=== PATIENT | female | born 1945 | race Caucasian/White ===

== ENCOUNTER 2017-01-27 12:14 | Emergency (ER) | payer MEDICARE, OTHER ==
[2017-01-27 12:34] VITALS: BP 158/82
--- NOTE | 2017-01-27 14:56 | EDM.PDOC ---
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 States headache, nausea and vomitting and some dizziness for 3 days. States some constipation and little appetite. Have tried alkaselzer for nausea. States has tried ensure in past and doesn't like the taste. Onset Date: 01/24/17 Duration: Intermittent Location: Reports: Abdomen Worsens with: Reports: Eating Associated Symptoms: Reports: Nausea/Vomiting. Denies: Loss of Appetite - Related Data Allergies Allergy/AdvReac Type Severity Reaction Status Date / Time Sulfa (Sulfonamide Allergy Severe Anaphylactic Verified 01/27/17 12:26 Antibiotics) Shock iodine Allergy Swelling Verified 01/27/17 12:26 Home Meds: Home Meds DULoxetine [Cymbalta] 60 mg PO DAILY 11/01/13 [History] Aspirin/Dipyridamole [Aggrenox 200-25 MG] 25 - 200 mg PO BID 04/12/16 [History] Oxybutynin [Oxybutynin ER] 10 mg PO QPM 04/12/16 [History] atorvaSTATin [Lipitor] 40 mg PO BEDTIME 01/27/17 [History] diphenhydrAMINE [Benadryl] 25 mg PO DAILY 01/27/17 [History] Past Medical History Cardiovascular History: Reports: Hypertension Respiratory History: Reports: Asthma, COPD, SOB Genitourinary History: Reports: Urinary Incontinence 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: Musculoskeletal History: Reports: Neck Pain, Chronic, Other (See Below) Other Musculoskeletal History: Fractured neck 1972 C6 Neurological History: Reports: CVA - Infectious Disease History Infectious Disease History: Reports: Chicken Pox - Past Surgical History HEENT Surgical History: Reports: Cataract Surgery Female Surgical History: Reports: Section, Hysterectomy Social & Family History - Family History Family Medical History: Noncontributory - Tobacco Use Smoking Status *Q: Current Every Day Smoker Years of Tobacco use: 50 Packs/Tins Daily: 1 Used Tobacco, but Quit: No Second Hand Smoke Exposure: No - Caffeine Use Caffeine Use: Reports: Coffee - Alcohol Use Days Per Week of Alcohol Use: 1 Number of Drinks Per Day: 1 Total Drinks Per Week: 1 - Recreational Drug Use Recreational Drug Use: Yes Drug Use in Last 12 Months: Yes Recreational Drug Type: Reports: Marijuana/Hashish Recreational Drug Use Frequency: Monthly Recreational Drug Last Use: pot ED ROS GENERAL - Review of Systems Review Of Systems: See Below Constitutional: Reports: Weakness, Fatigue HEENT: Reports: No Symptoms Respiratory: Reports: Shortness of Breath Cardiovascular: Reports: Dyspnea on Exertion Endocrine: Reports: No Symptoms GI/Abdominal: Reports: Nausea, Vomiting : Reports: Incontinence Musculoskeletal: Reports: No Symptoms Skin: Reports: No Symptoms Neurological: Reports: Dizziness Psychiatric: Reports: No Symptoms ED EXAM, GI/ABD - Physical Exam Exam: See Below Exam Limited By: Other (speech difficult for pt, difficult to find the words) General Appearance: Alert, No Apparent Distress Head: Atraumatic Neck: Supple, Non-Tender Respiratory/Chest: Lungs Clear, Normal Breath Sounds, Decreased Breath Sounds Cardiovascular: Regular Rate, Rhythm, No Edema GI/Abdominal Exam: Normal Bowel Sounds, Soft, Non-Tender Extremities: Non-Tender, No Pedal Edema, Other (Limited movement of right hand) Neurological: Alert Psychiatric: Normal Affect, Normal Mood Skin Exam: Warm, Dry, Intact, Normal Color Course - Vital Signs Last Recorded V/S: Last Vital Signs Temp 98.3 F 01/27/17 12:32 Pulse 79 01/27/17 12:32 Resp 12 01/27/17 12:32 BP 158/82 H 01/27/17 12:32 Pulse Ox 95 01/27/17 12:32 - Orders/Labs/Meds Labs: Laboratory Tests 01/27/17 01/27/17 01/27/17 Range/Units 13:13 13:13 13:14 WBC 8.8 D (4.0-11.0) K/uL RBC 4.08 (3.80-5.80) M/uL Hgb 12.7 (11.5-16.5) g/dL Hct 38.0 (37.0-47.0) % MCV 93 (76-96) fL MCH 31.1 (27.0-32.0) pg MCHC 33.4 (31.0-35.0) g/dL RDW 13.6 (11.0-16.0) % Plt Count 320 (150-500) K/uL MPV 8.8 (6.0-10.0) fL Neut % (Auto) 64.8 (45.0-70.0) % Lymph % (Auto) 23.2 (20.0-40.0) % [place] % (Auto) 8.1 (3.0-10.0) % Eos % (Auto) 3.8 (1.0-5.0) % Baso % (Auto) 0.1 (0.0-0.5) % Neut # (Auto) 5.70 (2.00-7.50) K/uL Lymph # (Auto) 2.04 (1.50-4.00) K/uL [place] # (Auto) 0.71 (0.20-0.80) K/uL Eos # (Auto) 0.33 (0.04-0.40) K/uL Baso # (Auto) 0.01 L (0.02-0.10) K/uL Sodium 138 (136-145) mmol/L Potassium 4.2 (3.5-5.1) mmol/L Chloride 103 (98-107) mmol/L Carbon Dioxide 30.6 (21.0-32.0) mmol/L Anion Gap 8.6 (5.0-15.0) mmol/L BUN 18 D (8-26) mg/dL Creatinine 0.90 (0.55-1.02) mg/dL Est Cr Clr Drug Dosing TNP Estimated GFR (MDRD) > 60 (>60) MLS/MIN BUN/Creatinine Ratio 20.0 (6-25) Glucose 89 (74-100) mg/dL Calcium 9.0 (8.5-10.1) mg/dL Total Bilirubin 0.3 (0.0-1.0) mg/dL AST 28 (15-37) U/L ALT 28 (12-78) U/L Alkaline Phosphatase 162 H (46-116) U/L Total Protein 7.4 (6.4-8.2) g/dL Albumin 3.2 L (3.4-5.0) g/dL Globulin 4.2 (2.2-4.2) g/dL Albumin/Globulin Ratio 0.8 (0.8-2.0) Urine Color Yellow Urine Appearance Slightly cloudy (CLEAR) Urine pH 7.0 (5.0-8.0) Ur Specific [place] 1.020 (1.003-1.030) Urine Protein Trace H (NEGATIVE) mg/dL Urine Glucose (UA) Negative (NEGATIVE) mg/dL Urine Ketones Negative (NEGATIVE) mg/dL Urine Occult Blood Trace-intact H (NEGATIVE) Urine Nitrite Negative (NEGATIVE) Urine Bilirubin Negative (NEGATIVE) Urine Urobilinogen 0.2 (0.2-1.0) E.U./dL Ur Leukocyte Esterase Moderate H (NEGATIVE) Urine RBC 5-10 H /HPF Urine WBC 50-75 H /HPF Urine WBC Clumps Few /HPF Ur Squamous Epith Cells Few /HPF Urine Bacteria Moderate H /HPF - Re-Assessments/Exams Free Text/Narrative Re-Assessment/Exam: 01/27/17 17:40 LE 13:30: Reviewed lab results with pt and . Electrolytes normal and kidney function normal. No leukocytosis noted and no anemia. Will treat UTI with Cipro for 7 days. RX to [facility] pharmacy. Recommend use of supplement and will try ensure plus fruit punch. Recommend use of Meclizine for dizziness and may help with nausea. Recommend MOM every 3 days if no BM to keep regular. Recommend increase fluids and supplements as tolerated. and state comfort with this plan. RTC if symptoms persist or worsen. Departure - Departure Time of Disposition: 13:30 Disposition: Home, Self-Care 01 Condition: Good Clinical Impression: UTI, Urinary tract infectious disease, Nausea & vomiting, Constipation - Discharge Information Instructions: Nausea, Adult, Urinary Tract Infection, Adult, [id number] Referrals: PCP,None [Primary Care Provider] - Forms: ED Department Discharge Additional Instructions: Take meclazine before lunch and before supper to prevent nausea. Follow up with primary care provider if nausea/vomiting persists.
== END 2017-01-27 14:05 | disposition home or self-care (01) ==
LOC: LB.ED 12:14
DX: N39.0 Urinary tract infection, site not specified (principal); R11.2 Nausea with vomiting, unspecified; K59.00 Constipation, unspecified; F17.210 Nicotine dependence, cigarettes, uncomplicated; Z88.2 Allergy status to sulfonamides; Z88.8 Allergy status to other drugs, medicaments and biological substances
CPT/HCPCS: 36415; 80053; 81001; 85025; 99283; 99284

== ENCOUNTER 2019-09-11 11:42 | Inpatient (IN) | payer MEDICARE ==
[2019-09-11] MEDS ORDERED: Sodium Chloride 0.9% 10 ML Syringe FLUSH PRN (12:04)
[2019-09-11] MEDS ORDERED: LORazepam 2 MG/ML SDV IVPUSH ONE (13:03)
[2019-09-11] MEDS: LORazepam 0.5 MG Tab ONE ×2 (13:11→19:13)
--- NOTE | 2019-09-11 13:21 | EDM.PDOC ---
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 She has a history of a stoke with right sided weakness and has had an increase in right arm swelling. She was seen by Dr. Calvo last week for this and is scheduled for an ultrasound for later this week. 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 She was also noted to be quite short of breath today. She has had increased difficulty with her breathing this weekend but it is much worse today. She arrives using her 's oxygen at 2L per NC with oxygen saturation of 88%. She is having difficulty speaking in full sentences and is most comfortable sitting up. Patient denies a fever, chest pain, or other pain. She has had some nausea and vomiting over the weekend as well. She last had urine out just before arrival to the ED. Onset: Gradual Onset Date: 09/06/19 Duration: Constant, Getting Worse Location: Reports: Chest Severity: Moderate Improves with: Reports: Other (some improvement with supplemental oxygen) Worsens with: Reports: Movement Associated Symptoms: Reports: Cough, Loss of Appetite, Nausea/Vomiting, Shortness of Breath, Weakness. Denies: Chest Pain, Diaphoresis, Fever/Chills, Headaches, Syncope Right Lower Arm Pain Score (Numeric/FACES): 4 - Related Data Allergies Allergy/AdvReac Type Severity Reaction Status Date / Time Sulfa (Sulfonamide Allergy Severe Anaphylactic Verified 03/23/18 12:25 Antibiotics) Shock iodine Allergy Swelling Verified 03/23/18 12:25 Home Meds: Home Meds Aspirin/Dipyridamole [Aggrenox 200-25 MG] 25 - 200 mg PO BID 04/12/16 [History] atorvaSTATin [Lipitor] 40 mg PO BEDTIME 01/27/17 [History] diphenhydrAMINE [Benadryl] 25 mg PO DAILY 01/27/17 [History] Clopidogrel [Plavix] 75 mg PO BEDTIME 09/11/19 [History] Past Medical History HEENT History: Reports: Cataract Cardiovascular History: Reports: High Cholesterol, Hypertension Respiratory History: Reports: Asthma, COPD, SOB Gastrointestinal History: Reports: Chronic Constipation Genitourinary History: Reports: Urinary Incontinence 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: Musculoskeletal History: Reports: Neck Pain, Chronic, Other (See Below) Other Musculoskeletal History: Fractured neck 1972 C6 Neurological History: Reports: CVA - Infectious Disease History Infectious Disease History: Reports: Chicken Pox - Past Surgical History HEENT Surgical History: Reports: Cataract Surgery Cardiovascular Surgical History: Reports: None Female Surgical History: Reports: Section, Hysterectomy Social & Family History - Family History Family Medical History: Noncontributory - Tobacco Use Smoking Status *Q: Former Smoker Used Tobacco, but Quit: Yes Month/Year Tobacco Last Used: 06/04/2019 Second Hand Smoke Exposure: No - Caffeine Use Caffeine Use: Reports: Coffee - Recreational Drug Use Recreational Drug Use: No ED ROS GENERAL - Review of Systems Review Of Systems: Comprehensive ROS is negative, except as noted in HPI. ED EXAM, GENERAL - Physical Exam Exam: See Below Exam Limited By: No Limitations General Appearance: Alert, No Apparent Distress Eye Exam: Bilateral Eye: PERRL Ears: Normal External Exam Nose: Normal Inspection, Normal Mucosa, Nasal Flaring Throat/Mouth: Normal Inspection, Normal Oropharynx, No Airway Compromise Head: Atraumatic, Normocephalic Neck: Normal Inspection, Supple, Full Range of Motion Respiratory/Chest: Respiratory Distress, Decreased Breath Sounds (significantly decreased breath sounds left lower; some air entry noted in left upper), Wheezing (occasional expiratory) GI/Abdominal: Normal Bowel Sounds, Soft, Non-Tender, No Distention Neurological: Alert, Oriented Skin Exam: Dry, Intact, Normal Color Course - Vital Signs Last Recorded V/S: Last Vital Signs Temp 36.4 C 09/11/19 12:47 Pulse 113 H 09/11/19 12:47 Resp 18 09/11/19 12:47 BP 147/47 H 09/11/19 12:47 Pulse Ox 88 L 09/11/19 12:47 - Orders/Labs/Meds Orders: Active Orders 24 hr Category Date Time Status Admission Status [Patient Status] [ADT] Routine ADT 09/11/19 12:40 Active EKG Documentation Completion [RC] ASDIRECTED Care 09/11/19 12:05 Active Chest 1V Frontal [CR] Stat Exams 09/11/19 12:05 Ordered Chest wo Cont [CT] Stat Exams 09/11/19 13:03 Ordered CORONAVIRUS COVID-19, CARI Stat Lab 09/11/19 12:06 Ordered URINALYSIS W/MICROSCOPIC [UA W/MICROSCOPIC] [URIN] Stat Lab 09/11/19 12:04 Ordered Sodium Chloride 0.9% [Saline Flush] Med 09/11/19 12:04 Active 10 ml FLUSH ASDIRECTED PRN Saline Lock Insert [OM.PC] Stat Oth 09/11/19 12:04 Ordered Medication Orders Sodium Chloride (Saline Flush) 10 ml FLUSH ASDIRECTED PRN PRN Reason: Keep Vein Open Labs: Laboratory Tests 09/11/19 09/11/19 Range/Units 12:20 12:40 WBC 8.8 (4.0-11.0) K/uL RBC 3.97 (3.80-5.80) M/uL Hgb 11.9 (11.5-16.5) g/dL Hct 36.4 L (37.0-47.0) % MCV 92 (76-96) fL MCH 30.0 (27.0-32.0) pg MCHC 32.7 (31.0-35.0) g/dL RDW 13.8 (11.0-16.0) % Plt Count 263 (150-500) K/uL MPV 9.8 (6.0-10.0) fL Neut % (Auto) 79.8 H (45.0-70.0) % Lymph % (Auto) 13.3 L (20.0-40.0) % [place] % (Auto) 5.8 (3.0-10.0) % Eos % (Auto) 1.0 (1.0-5.0) % Baso % (Auto) 0.1 (0.0-0.5) % Neut # (Auto) 7.03 (2.00-7.50) K/uL Lymph # (Auto) 1.17 L (1.50-4.00) K/uL [place] # (Auto) 0.51 (0.20-0.80) K/uL Eos # (Auto) 0.09 (0.04-0.40) K/uL Baso # (Auto) 0.01 L (0.02-0.10) K/uL Sodium 139 (136-145) mmol/L Potassium 4.1 (3.5-5.1) mmol/L Chloride 103 (98-107) mmol/L Carbon Dioxide 27.5 (21.0-32.0) mmol/L Anion Gap 12.6 (5.0-15.0) mmol/L BUN 36 H D (8-26) mg/dL Creatinine 1.20 H D (0.55-1.02) mg/dL Est Cr Clr Drug Dosing 32.89 mL/min Estimated GFR (MDRD) 44 L (>60) MLS/MIN BUN/Creatinine Ratio 30.0 H (6-25) Glucose 215 H D (74-100) mg/dL Calcium 8.9 (8.5-10.1) mg/dL Troponin I < 0.017 (0.000-0.060) ng/mL Meds: Medications Generic Name Dose Route Start Last Admin Trade Name Freq PRN Reason Stop Dose Admin Sodium Chloride 10 ml 09/11/19 12:04 Saline Flush FLUSH ASDIRECTED PRN Keep Vein Open Discontinued Medications Generic Name Dose Route Start Last Admin Trade Name Freq PRN Reason Stop Dose Admin Lorazepam 0.5 mg 09/11/19 13:03 09/11/19 13:11 Ativan IVPUSH 09/11/19 13:04 0.5 mg ONETIME ONE Administration Lorazepam Confirm 09/11/19 13:10 Ativan Administered 09/11/19 13:11 Dose 0.5 mg .ROUTE .STK-MED ONE - Re-Assessments/Exams Free Text/Narrative Re-Assessment/Exam: 09/11/19 13:23 This patient presents with hypoxia and increased difficulty breathing. For these reasons she will be admitted to the inpatient unit on Observation status for supplemental oxygen. She will get a chest CT today as well as her CXR shows some significant changes since her last exam. Departure - Departure Time of Disposition: 13:00 Disposition: Refer to Observation Condition: Fair Clinical Impression: Hypoxia, Shortness of breath - Discharge Information *PRESCRIPTION DRUG MONITORING PROGRAM REVIEWED*: Not Applicable Referrals: PCP,None [Primary Care Provider] - Sepsis Event Note - Evaluation Sepsis Screening Result: No Definite Risk - Focused Exam Vital Signs: Vital Signs Temp Pulse Resp BP Pulse Ox 09/11/19 12:47 36.4 C 113 H 18 147/47 H 88 L 09/11/19 12:05 36.3 C 113 H 18 147/47 H 88 L Date Exam was Performed: 09/11/19 Time Exam was Performed: 13:16 - My Orders Last 24 Hours: My Active Orders 09/11/19 12:04 URINALYSIS W/MICROSCOPIC [UA W/MICROSCOPIC] [URIN] Stat Sodium Chloride 0.9% [Saline Flush] 10 ml FLUSH ASDIRECTED PRN Saline Lock Insert [OM.PC] Stat 09/11/19 12:05 EKG Documentation Completion [RC] ASDIRECTED Chest 1V Frontal [CR] Stat 09/11/19 12:06 CORONAVIRUS COVID-19, CARI Stat 09/11/19 12:40 Admission Status [Patient Status] [ADT] Routine 09/11/19 13:03 Chest wo Cont [CT] Stat - Assessment/Plan Last 24 Hours: My Active Orders 09/11/19 12:04 URINALYSIS W/MICROSCOPIC [UA W/MICROSCOPIC] [URIN] Stat Sodium Chloride 0.9% [Saline Flush] 10 ml FLUSH ASDIRECTED PRN Saline Lock Insert [OM.PC] Stat 09/11/19 12:05 EKG Documentation Completion [RC] ASDIRECTED Chest 1V Frontal [CR] Stat 09/11/19 12:06 CORONAVIRUS COVID-19, CARI Stat 09/11/19 12:40 Admission Status [Patient Status] [ADT] Routine 09/11/19 13:03 Chest wo Cont [CT] Stat
--- NOTE | 2019-09-11 16:29 | CT ---
DATE OF SERVICE: 09/11/2019 CLINICAL DATA: Shortness of breath Unenhanced chest CT: Multislice acquisition through the chest without IV contrast was performed. No priors. There is a large right pleural effusion. It is partially loculated anteriorly. There is a large soft tissue density mass involving the right hilum and suprahilar region. It measures greater than 12 cm in its maximum dimension. It encases the right mainstem bronchus, right upper lobe bronchus, and right bronchus intermedius with moderate compression. It extends into the mediastinum and partially encases the distal trachea and jagruti with extension into the superior mediastinum, AP window, and subcarinal middle mediastinum. Lymphoma or other malignant processes are suspected. There is marked compressive atelectasis of the right lower lobe and right upper lobe. There is mild shift of the mediastinal contents to the left. The heart size is normal. There are severe coronary artery calcifications. There are calcifications in the region of the aortic and mitral valves. No significant pericardial effusion. There is degenerative disc disease throughout the lower thoracic and lumbar spine. No lytic or blastic bone lesions. Impression: Abnormal exam. See above. MTDD
--- NOTE | 2019-09-11 16:44 | PCM.HP.2 ---
H&P History of Present Illness - General Date of Service: 09/11/19 Admit Problem/Dx: Admission Diagnosis/Problem Admission Diagnosis/Problem Shortness of breath Source of Information: Patient, RN Notes Reviewed, Other (Home Care Nurse) History Limitations: Reports: No Limitations - History of Present Illness Initial Comments - Free Text/Narative: This patient presents to the ED for difficulty breathing and arm swelling. She has a history of a stoke with right sided weakness and has had an increase in right arm swelling. She was seen by Dr. Calvo last week for this and is scheduled for an ultrasound for later this week. The home service demonstrator states the swelling is much worse this morning. She was also noted to be quite short of breath today. She has had increased difficulty with her breathing this weekend but it is much worse today. She arrives using her 's oxygen at 2L per NC with oxygen saturation of 88%. She is having difficulty speaking in full sentences and is most comfortable sitting up. Patient denies a fever, chest pain, or other pain. She has had some nausea and vomiting over the weekend as well. She last had urine out just before arrival to the ED. Onset of Symptoms: Reports: Gradual Symptom Onset Date: 09/07/19 Duration of Symptoms: Reports: Constant, Getting Worse Right Lower Arm Pain Score (Numeric/FACES): 4 - Related Data Allergies/Adverse Reactions: Allergies Allergy/AdvReac Type Severity Reaction Status Date / Time Sulfa (Sulfonamide Allergy Severe Anaphylactic Verified 03/23/18 12:25 Antibiotics) Shock iodine Allergy Swelling Verified 03/23/18 12:25 Home Medications: Home Meds Aspirin/Dipyridamole [Aggrenox 200-25 MG] 25 - 200 mg PO BID 04/12/16 [History] atorvaSTATin [Lipitor] 40 mg PO BEDTIME 01/27/17 [History] diphenhydrAMINE [Benadryl] 25 mg PO DAILY 01/27/17 [History] Clopidogrel [Plavix] 75 mg PO BEDTIME 09/11/19 [History] Past Medical History HEENT History: Reports: Cataract Cardiovascular History: Reports: High Cholesterol, Hypertension Respiratory History: Reports: Asthma, COPD, SOB Gastrointestinal History: Reports: Chronic Constipation Genitourinary History: Reports: Urinary Incontinence 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: Musculoskeletal History: Reports: Neck Pain, Chronic, Other (See Below) Other Musculoskeletal History: Fractured neck 1972 C6 Neurological History: Reports: CVA - Infectious Disease History Infectious Disease History: Reports: Chicken Pox - Past Surgical History HEENT Surgical History: Reports: Cataract Surgery Cardiovascular Surgical History: Reports: None Female Surgical History: Reports: Section, Hysterectomy Social & Family History - Family History Family Medical History: Noncontributory - Tobacco Use Smoking Status *Q: Former Smoker Used Tobacco, but Quit: Yes Month/Year Tobacco Last Used: 06/04/2019 Second Hand Smoke Exposure: No - Caffeine Use Caffeine Use: Reports: Coffee - Recreational Drug Use Recreational Drug Use: No H&P Review of Systems - Review of Systems: Review Of Systems: See Below General: Reports: Weakness, Fatigue, Decreased Appetite. Denies: Fever HEENT: Reports: No Symptoms Pulmonary: Reports: Shortness of Breath, Cough Cardiovascular: Reports: Dyspnea on Exertion, Orthopnea. Denies: Chest Pain, Palpitations Gastrointestinal: Denies: Abdominal Pain, Constipation, Difficulty Swallowing, Nausea, Vomiting Genitourinary: Reports: No Symptoms Musculoskeletal: Reports: Other (right are swelling) Skin: Reports: No Symptoms Neurological: Reports: No Symptoms Exam - Exam Exam: See Below - Vital Signs Vital Signs: Last Vital Signs Temp 35.7 C L 09/11/19 13:25 Pulse 92 09/11/19 13:25 Resp 16 09/11/19 13:25 BP 126/63 09/11/19 13:25 Pulse Ox 99 09/11/19 13:25 Weight: 49.895 kg - Exam Quality Assessment: Supplemental Oxygen General: Alert, Oriented, Cooperative, Moderate Distress HEENT: PERRLA, Conjunctiva Clear, EOMI, Mucosa Moist & [place], Posterior Pharynx Clear Neck: Supple Lungs: Decreased Breath Sounds (significantly decreased on right; good air entry on left). No: Crackles, Rales, Rhonchi, Wheezing Cardiovascular: Regular Rate, Regular Rhythm GI/Abdominal Exam: Normal Bowel Sounds, Soft, Non-Tender, No Distention Extremities: Normal Capillary Refill (except right hand, delayed to 3 seconds), Other (right arm and hand moderate swelling, non-pitting; no deformity or discoloration, distal capillary refill delayed) Skin: Warm, Dry, Intact Neuro Extensive - Mental Status: Alert, Oriented x3 Psychiatric: Alert - Patient Data Lab Results Last 24 hrs: Laboratory Results - last 24 hr 09/11/19 09/11/19 09/11/19 Range/Units 12:06 12:20 12:40 WBC 8.8 (4.0-11.0) K/uL RBC 3.97 (3.80-5.80) M/uL Hgb 11.9 (11.5-16.5) g/dL Hct 36.4 L (37.0-47.0) % MCV 92 (76-96) fL MCH 30.0 (27.0-32.0) pg MCHC 32.7 (31.0-35.0) g/dL RDW 13.8 (11.0-16.0) % Plt Count 263 (150-500) K/uL MPV 9.8 (6.0-10.0) fL Neut % (Auto) 79.8 H (45.0-70.0) % Lymph % (Auto) 13.3 L (20.0-40.0) % [place] % (Auto) 5.8 (3.0-10.0) % Eos % (Auto) 1.0 (1.0-5.0) % Baso % (Auto) 0.1 (0.0-0.5) % Neut # (Auto) 7.03 (2.00-7.50) K/uL Lymph # (Auto) 1.17 L (1.50-4.00) K/uL [place] # (Auto) 0.51 (0.20-0.80) K/uL Eos # (Auto) 0.09 (0.04-0.40) K/uL Baso # (Auto) 0.01 L (0.02-0.10) K/uL Sodium 139 (136-145) mmol/L Potassium 4.1 (3.5-5.1) mmol/L Chloride 103 (98-107) mmol/L Carbon Dioxide 27.5 (21.0-32.0) mmol/L Anion Gap 12.6 (5.0-15.0) mmol/L BUN 36 H D (8-26) mg/dL Creatinine 1.20 H D (0.55-1.02) mg/dL Est Cr Clr Drug Dosing 32.89 mL/min Estimated GFR (MDRD) 44 L (>60) MLS/MIN BUN/Creatinine Ratio 30.0 H (6-25) Glucose 215 H D (74-100) mg/dL Calcium 8.9 (8.5-10.1) mg/dL Troponin I < 0.017 (0.000-0.060) ng/mL SARS Virus RNA (PCR) Negative (NEGATIVE) Result Diagrams: 09/11/19 12:20 09/11/19 12:40 Sepsis Event Note - Evaluation Sepsis Screening Result: No Definite Risk - Focused Exam Vital Signs: Vital Signs Temp Pulse Resp BP Pulse Ox Pulse Ox 09/11/19 13:25 35.7 C L 92 16 126/63 99 99 09/11/19 12:47 36.4 C 113 H 18 147/47 H 88 L 09/11/19 12:05 36.3 C 113 H 18 147/47 H 88 L Date Exam was Performed: 09/11/19 Time Exam was Performed: 17:58 - Problem List (1) Hypoxia SNOMED Code(s): 656270368 ICD Code: R09.02 - HYPOXEMIA Status: Acute Priority: High Current Visit : Yes (2) Shortness of breath SNOMED Code(s): 380533334 ICD Code: R06.02 - SHORTNESS OF BREATH Status: Acute Priority: High Current Visit: Yes Problem List Initiated/Reviewed/Updated: Yes Orders Last 24hrs: Active Orders 24 hr Category Date Time Status Admission Status [Patient Status] [ADT] Routine ADT 09/11/19 12:40 Active Patient Status [ADT] Routine ADT 09/11/19 13:25 Active EKG Documentation Completion [RC] ASDIRECTED Care 09/11/19 12:05 Active Oxygen Therapy [RC] PRN Care 09/11/19 13:25 Active VTE/DVT Education [RC] Per Unit Routine Care 09/11/19 13:25 Active Vital Signs [RC] Q4H Care 09/11/19 13:25 Active Regular Diet [DIET] Diet 09/11/19 Dinner Ordered Chest 1V Frontal [CR] Stat Exams 09/11/19 12:05 Taken URINALYSIS W/MICROSCOPIC [UA W/MICROSCOPIC] [URIN] Stat Lab 09/11/19 12:04 Ordered Aspirin/Dipyridamole [Aggrenox 200-25 MG] Med 09/11/19 20:00 Active 25 - 200 mg PO BID Clopidogrel [Plavix] Med 09/11/19 20:00 Active 75 mg PO BEDTIME Sodium Chloride 0.9% [Saline Flush] Med 09/11/19 12:04 Active 10 ml FLUSH ASDIRECTED PRN atorvaSTATin [Lipitor] Med 09/11/19 20:00 Active 40 mg PO BEDTIME diphenhydrAMINE [Benadryl] Med 09/12/19 08:00 Active 25 mg PO DAILY Saline Lock Insert [OM.PC] Stat Oth 09/11/19 12:04 Ordered Resuscitation Status Routine Resus Stat 09/11/19 13:25 Ordered Medication Orders Non-Formulary Medication (Aspirin/Dipyridamole [Aggrenox 200-25 Mg]) 25 - 200 mg PO BID ELICIA Non-Formulary Medication (Atorvastatin [Lipitor]) 40 mg PO BEDTIME ELICIA Non-Formulary Medication (Clopidogrel [Plavix]) 75 mg PO BEDTIME ELICIA Non-Formulary Medication (Diphenhydramine [Benadryl]) 25 mg PO DAILY ELICIA Sodium Chloride (Saline Flush) 10 ml FLUSH ASDIRECTED PRN PRN Reason: Keep Vein Open Assessment/Plan Comment:: Assessment 1) Hypoxia 2) Shortness of Breath 3) 12 cm mass right lung Plan 1) Titrate supplemental oxygen to keep saturation around 92% 2) Arrange for supplemental oxygen at home 3) Arrange Oncology Consult on outpatient basis. - Mortality Measure Prognosis:: Poor
[2019-09-11] MEDS: LORazepam 0.5 MG Tab PO PRN (20:42)
[2019-09-11] MEDS ORDERED: Aspirin/Dipyridamole 200-25 MG Cap.ER ONE (21:02)
[2019-09-11] MEDS ORDERED: Clopidogrel 75 MG Tab ONE (21:02)
[2019-09-11] MEDS ORDERED: atorvaSTATin 40 MG Tab ONE (21:03)
[2019-09-11] MEDS: ASPIRIN PO SCH (21:06)
[2019-09-11] MEDS: DIPYRIDAMOLE PO SCH (21:06)
[2019-09-11] MEDS: Non-Formulary Medication 1 Each (Clopidogrel [Plavix] 75 MG) PO SCH (21:07)
[2019-09-11] MEDS: Non-Formulary Medication 1 Each (Atorvastatin [Lipitor] 40 MG) PO SCH (21:07)
[2019-09-12] MEDS ORDERED: DIPHENHYDRAMINE 25 MG PO SCH (08:00)
--- NOTE | 2019-09-12 08:12 | CR ---
DATE OF SERVICE: 09/11/2019 CLINICAL DATA: Shortness of breath AP Chest: Comparison is made to a prior exam dated 17 Aug 2016. The heart size is normal. There is marked pleural thickening in the right hemithorax which may be loculated pleural effusion or true pleural thickening secondary to infectious or inflammatory process or malignancy. There is marked atelectasis of the right lung also. There is also a masslike density overlying the right hilum and there is masslike soft tissue fullness in the right apex. The left lung is clear. Chest CT is recommended to further evaluate this patient. MTDD
[2019-09-12] MEDS ORDERED: Docusate Sodium 100 MG Cap PO PRN (09:37)
[2019-09-12] MEDS: DIPYRIDAMOLE PO SCH (09:39)
[2019-09-12] MEDS: ASPIRIN PO SCH (09:39)
[2019-09-12] MEDS ORDERED: traMADol 50 MG Tab PO PRN (09:47)
--- NOTE | 2019-09-12 16:22 | PCM.PN ---
- General Info Date of Service: 09/12/19 Admission Dx/Problem (Free Text): Admission Diagnosis/Problem Admission Diagnosis/Problem Shortness of breath Subjective Update: Patient continues largely unchanged with significant increase in her work of breathing and respiratory distress with movement. She is complaining of pain today, particularly right chest and shoulder. She is also having some choking episodes with swallowing liquids such as water. She seems to do fine with soft foods or thicker fluids. She denies vomiting or diarrhea. Functional Status: Reports: Pain Controlled - Review of Systems General: Reports: No Symptoms HEENT: Reports: No Symptoms Pulmonary: Reports: Shortness of Breath, Cough Cardiovascular: Reports: Chest Pain, Dyspnea on Exertion, Orthopnea Gastrointestinal: Reports: No Symptoms Genitourinary: Reports: No Symptoms Musculoskeletal: Reports: Shoulder Pain (right) Skin: Reports: No Symptoms Neurological: Denies: Headache, Syncope, Difficulty Walking - Patient Data Vitals - Most Recent: Last Vital Signs Temp 36.2 C 09/12/19 16:00 Pulse 89 09/12/19 16:00 Resp 20 09/12/19 16:00 BP 145/75 H 09/12/19 16:00 Pulse Ox 95 09/12/19 16:00 Weight - Most Recent: 49.895 kg Lab Results Last 24 Hours: Laboratory Results - last 24 hr 09/11/19 09/11/19 Range/Units 12:06 12:06 SARS Virus RNA (PCR) Cancelled SARS-CoV-2 RNA (RT-PCR) Negative Med Orders - Current: Current Medications Aspirin (Aspirin) 81 mg PO DAILY [facility] Docusate Sodium (Colace) 200 mg PO DAILY PRN PRN Reason: Constipation Potassium Chloride/Dextrose/Sod Cl (D5 1/2 Ns W/ 20 Meq/L Kcl) 1,000 mls @ 100 mls/hr IV ASDIRECTED ELICIA Lorazepam (Ativan) 0.5 mg PO Q4H PRN PRN Reason: Anxiety Last Admin: 09/11/19 20:42 Dose: 0.5 mg Non-Formulary Medication (Atorvastatin [Lipitor]) 40 mg PO BEDTIME ELICIA Last Admin: 09/11/19 21:07 Dose: 40 mg Non-Formulary Medication (Clopidogrel [Plavix]) 75 mg PO BEDTIME [facility] Last Admin: 09/11/19 21:07 Dose: 75 mg Sodium Chloride (Saline Flush) 10 ml FLUSH ASDIRECTED PRN PRN Reason: Keep Vein Open Tramadol HCl (Ultram) 100 mg PO Q6H PRN PRN Reason: Pain (moderate 4-6) Discontinued Medications Atorvastatin Calcium (Lipitor) Confirm Administered Dose 40 mg .ROUTE .STK-MED ONE Stop: 09/11/19 21:04 Last Admin: 09/11/19 21:09 Dose: Not Given Clopidogrel Bisulfate (Plavix) Confirm Administered Dose 75 mg .ROUTE .STK-MED ONE Stop: 09/11/19 21:03 Last Admin: 09/11/19 21:08 Dose: Not Given Dipyridamole/Aspirin (Aggrenox 200-25 Mg) Confirm Administered Dose 1 cap .ROUTE .STK-MED ONE Stop: 09/11/19 21:03 Last Admin: 09/11/19 21:08 Dose: Not Given Lorazepam (Ativan) 0.5 mg IVPUSH ONETIME ONE Stop: 09/11/19 13:04 Last Admin: 09/11/19 13:11 Dose: 0.5 mg Lorazepam (Ativan) Confirm Administered Dose 0.5 mg .ROUTE .STK-MED ONE Stop: 09/11/19 13:11 Last Admin: 09/11/19 19:13 Dose: Not Given Non-Formulary Medication (Aspirin/Dipyridamole [Aggrenox 200-25 Mg]) 25 - 200 mg PO BID [facility] Last Admin: 09/12/19 09:39 Dose: Not Given Non-Formulary Medication (Diphenhydramine [Benadryl]) 25 mg PO DAILY [facility] Last Admin: 09/12/19 09:39 Dose: Not Given - Exam Quality Assessment: Supplemental Oxygen General: Alert, Oriented, Mild Distress HEENT: Pupils Equal, Pupils Reactive, EOMI, Mucous Membr. Moist/[place] Neck: Supple Lungs: Decreased Breath Sounds (Right breath sounds absent with exception of faint air entry to upper lobe; left chest clear) Cardiovascular: Regular Rhythm GI/Abdominal Exam: Normal Bowel Sounds, Soft, Non-Tender, No Distention Back Exam: Full Range of Motion Extremities: Normal Capillary Refill Skin: Warm, Dry, Intact Wound/Incisions: Healing Well Neurological: No New Focal Deficit Psy/Mental Status: Alert, Normal Affect Sepsis Event Note - Evaluation Sepsis Screening Result: No Definite Risk - Focused Exam Vital Signs: Vital Signs Temp Pulse Resp BP Pulse Ox 09/12/19 16:00 36.2 C 89 20 145/75 H 95 09/12/19 11:44 36.1 C 86 20 135/71 96 09/12/19 08:00 36.2 C 98 20 102/50 L 91 L Date Exam was Performed: 09/12/19 Time Exam was Performed: 16:17 - Problem List & Annotations (1) Hypoxia SNOMED Code(s): 958534567 Code(s): R09.02 - HYPOXEMIA Status: Acute Priority: High Current Visit : Yes (2) Shortness of breath SNOMED Code(s): 757109907 Code(s): R06.02 - SHORTNESS OF BREATH Status: Acute Priority: High Current Visit: Yes - Problem List Review Problem List Initiated/Reviewed/Updated: Yes - My Orders Last 24 Hours: My Active Orders 09/11/19 18:07 LORazepam [Ativan] 0.5 mg PO Q4H PRN 09/11/19 20:00 Clopidogrel [Plavix] 75 mg PO BEDTIME atorvaSTATin [Lipitor] 40 mg PO BEDTIME 09/11/19 Dinner Regular Diet [DIET] 09/12/19 09:10 CULTURE MRSA SURVEY [RM] Routine 09/12/19 09:35 OT Evaluation and Treatment [CONS] Routine PT Evaluation and Treatment [CONS] Routine 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 [THERAPEUTIC RECREATION LEADER Evaluation and Treatment] [CONS] Routine 09/12/19 09:37 Docusate Sodium [Colace] 200 mg PO DAILY PRN 09/12/19 09:47 traMADol [Ultram] 100 mg PO Q6H PRN 09/12/19 11:31 Admission Diagnosis [ADT] Stat Admission Status [Patient Status] [ADT] Routine 09/12/19 16:15 D5 1/2 NS w/ 20 mEq/L KCl 1,000 ml IV ASDIRECTED 09/13/19 08:00 Aspirin 81 mg PO DAILY - Assessment Assessment:: 09/11/2019 Assessment 1) Pleural Effusion with Hypoxia 2) Shortness of Breath 3) 12 cm mass right lung Plan 1) Titrate supplemental oxygen to keep saturation around 92% 2) Arrange for supplemental oxygen at home 3) Arrange Oncology Consult on outpatient basis. 09/12/2019 Assessment 1) Pleural Effusion with Hypoxia 2) Shortness of Breath 3) 12 cm mass right lung Plan 1) Titrate supplemental oxygen to keep saturation around 92% 2) Change to Inpatient status 3) OT/PT/Swallow Study required 4) Care Conference for discharge placement 5) Arrange Oncology Consult on outpatient basis. - Plan Plan:: Assessment 1) Hypoxia 2) Shortness of Breath 3) 12 cm mass right lung Plan 1) Titrate supplemental oxygen to keep saturation around 92% 2) Arrange for supplemental oxygen at home 3) Arrange Oncology Consult on outpatient basis.
[2019-09-12] MEDS ORDERED: Ondansetron 4 MG/2 ML SDV ONE (18:16)
[2019-09-12] MEDS: D5 1/2 NS w/ 20 mEq/L KCl 1,000 ML IV SCH (18:18)
[2019-09-12] MEDS: LORazepam 0.5 MG Tab PO PRN (18:25)
[2019-09-12] MEDS: Non-Formulary Medication 1 Each (Atorvastatin [Lipitor] 40 MG) PO SCH (20:05)
[2019-09-12] MEDS: Non-Formulary Medication 1 Each (Clopidogrel [Plavix] 75 MG) PO SCH (20:05)
[2019-09-13] MEDS: D5 1/2 NS w/ 20 mEq/L KCl 1,000 ML IV SCH ×2 (02:16→12:14)
[2019-09-13] MEDS: LORazepam 0.5 MG Tab PO PRN ×2 (07:59→20:46)
[2019-09-13] MEDS ORDERED: Aspirin 81 MG Tab.Chew PO SCH (08:00)
[2019-09-13] MEDS ORDERED: Ondansetron 4 MG/2 ML SDV IVPUSH PRN (12:06)
--- NOTE | 2019-09-13 12:21 | PCM.PN ---
- General Info Date of Service: 09/13/19 Admission Dx/Problem (Free Text): shortness of breath mediastinal mass comfort cares Subjective Update: Patient continues with increased work of breathing requiring supplemental O2 at 4LPM NC to keep sats at 95%. one hypoxic episode where pt became cyanotic with lying supine during cares, on sitting upright she quickly recovered. second episode of hypoxia with cyanosis and anxiety was reduced with IV morphine. pain controlled today with IV morphine as well. She continues having some choking episodes with swallowing liquids such as water, thickened liquids diet initiated yesterday. increasing nausea with single episode of vomiting today. pt requesting DNR and comfort cares declining further evaluation or referral to oncology. Functional Status: Reports: Pain Controlled, Tolerating Diet - Review of Systems General: Reports: Fatigue HEENT: Reports: No Symptoms Pulmonary: Reports: Shortness of Breath, Cough, Wheezing Cardiovascular: Reports: Dyspnea on Exertion Gastrointestinal: Reports: No Symptoms Genitourinary: Reports: No Symptoms Musculoskeletal: Reports: No Symptoms Skin: Reports: No Symptoms Neurological: Reports: Other (chronic right ) Psychiatric: Reports: Anxiety - Patient Data Vitals - Most Recent: Last Vital Signs Temp 97.2 F 09/13/19 07:55 Pulse 78 09/13/19 07:55 Resp 18 09/13/19 07:55 BP 138/69 09/13/19 07:55 Pulse Ox 95 09/13/19 07:55 Weight - Most Recent: 110 lb I&O - Last 24 Hours: Intake & Output 09/12/19 09/13/19 09/13/19 22:59 06:59 14:59 Intake Total 100 Balance 100 Buster Results Last 24 Hours: Microbiology 09/12/19 09:10 MRSA Surveillance Culture - Final Nares, Unspecified NO MRSA ISOLATED Med Orders - Current: Current Medications Aspirin (Aspirin) 81 mg PO DAILY ELICIA Last Admin: 09/13/19 07:59 Dose: 81 mg Docusate Sodium (Colace) 200 mg PO DAILY PRN PRN Reason: Constipation Last Admin: 09/13/19 07:59 Dose: 200 mg Potassium Chloride/Dextrose/Sod Cl (D5 1/2 Ns W/ 20 Meq/L Kcl) 1,000 mls @ 100 mls/hr IV ASDIRECTED ELICIA Last Admin: 09/13/19 02:16 Dose: 100 mls/hr Lorazepam (Ativan) 0.5 mg PO Q4H PRN PRN Reason: Anxiety Last Admin: 09/13/19 07:59 Dose: 0.5 mg Non-Formulary Medication (Atorvastatin [Lipitor]) 40 mg PO BEDTIME [facility] Last Admin: 09/12/19 20:05 Dose: 40 mg Non-Formulary Medication (Clopidogrel [Plavix]) 75 mg PO BEDTIME [facility] Last Admin: 09/12/19 20:05 Dose: 75 mg Ondansetron HCl (Zofran) 4 mg IVPUSH Q4H PRN PRN Reason: Nausea/Vomiting Sodium Chloride (Saline Flush) 10 ml FLUSH ASDIRECTED PRN PRN Reason: Keep Vein Open Tramadol HCl (Ultram) 100 mg PO Q6H PRN PRN Reason: Pain (moderate 4-6) Last Admin: 09/12/19 22:54 Dose: 100 mg Discontinued Medications Atorvastatin Calcium (Lipitor) Confirm Administered Dose 40 mg .ROUTE .STK-MED ONE Stop: 09/11/19 21:04 Last Admin: 09/11/19 21:09 Dose: Not Given Clopidogrel Bisulfate (Plavix) Confirm Administered Dose 75 mg .ROUTE .STK-MED ONE Stop: 09/11/19 21:03 Last Admin: 09/11/19 21:08 Dose: Not Given Dipyridamole/Aspirin (Aggrenox 200-25 Mg) Confirm Administered Dose 1 cap .ROUTE .STK-MED ONE Stop: 09/11/19 21:03 Last Admin: 09/11/19 21:08 Dose: Not Given Lorazepam (Ativan) 0.5 mg IVPUSH ONETIME ONE Stop: 09/11/19 13:04 Last Admin: 09/11/19 13:11 Dose: 0.5 mg Lorazepam (Ativan) Confirm Administered Dose 0.5 mg .ROUTE .STK-MED ONE Stop: 09/11/19 13:11 Last Admin: 09/11/19 19:13 Dose: Not Given Non-Formulary Medication (Aspirin/Dipyridamole [Aggrenox 200-25 Mg]) 25 - 200 mg PO BID [facility] Last Admin: 09/12/19 09:39 Dose: Not Given Non-Formulary Medication (Diphenhydramine [Benadryl]) 25 mg PO DAILY [facility] Last Admin: 09/12/19 09:39 Dose: Not Given Ondansetron HCl (Zofran) Confirm Administered Dose 4 mg .ROUTE .Fanminder-MED ONE Stop: 09/12/19 18:17 Last Admin: 09/12/19 18:22 Dose: 4 mg - Exam Quality Assessment: Supplemental Oxygen General: Alert, Oriented, Cooperative, Mild Distress HEENT: Pupils Equal, Pupils Reactive, EOMI, Mucous Membr. Moist/[place] Neck: No JVD Lungs: Decreased Breath Sounds (right side), Crackles (right lower) Cardiovascular: Regular Rate, Regular Rhythm, No Murmurs GI/Abdominal Exam: Soft, Non-Tender Extremities: Other (RUE edema) Peripheral Pulses: 2+: Radial (L), Radial (R), Posterior Tibial (L), Posterior Tibial (R) Skin: Warm, Dry, Intact Neurological: No New Focal Deficit Psy/Mental Status: Alert Sepsis Event Note - Evaluation Sepsis Screening Result: No Definite Risk - Focused Exam Vital Signs: Vital Signs Temp Pulse Resp BP Pulse Ox 09/13/19 07:55 97.2 F 78 18 138/69 95 09/13/19 04:00 97 F 81 15 141/76 H 97 Date Exam was Performed: 09/13/19 Time Exam was Performed: 21:51 - Problem List & Annotations (1) Mediastinal mass Status: Acute Current Visit: Yes Onset Date: ~09/12/19 (2) Hypoxia SNOMED Code(s): 450316434 Code(s): R09.02 - HYPOXEMIA Status: Acute Priority: High Current Visit : Yes Annotation/Comment:: continuous supplemental oxygen, morphine for air hunger (3) Shortness of breath SNOMED Code(s): 473594504 Code(s): R06.02 - SHORTNESS OF BREATH Status: Acute Priority: High Current Visit: Yes Annotation/Comment:: continuous supplemental oxygen, reduce activities (4) Nausea & vomiting SNOMED Code(s): 85676088 Code(s): R11.2 - NAUSEA WITH VOMITING, UNSPECIFIED Status: Acute Current Visit: Yes Qualifiers: Vomiting Intractability: non-intractable Annotation/Comment:: controlled with antiemetics (5) Swallowing dysfunction SNOMED Code(s): 673158005 Code(s): R13.10 - DYSPHAGIA, UNSPECIFIED Status: Acute Current Visit: Yes Annotation/Comment:: atropine drops to reduce secretions - Problem List Review Problem List Initiated/Reviewed/Updated: Yes - My Orders Last 24 Hours: My Active Orders 09/13/19 12:06 Ondansetron [Zofran] 4 mg IVPUSH Q4H PRN - Assessment Assessment:: 09/11/2019 Assessment 1) Pleural Effusion with Hypoxia 2) Shortness of Breath 3) 12 cm mass right lung Plan 1) Titrate supplemental oxygen to keep saturation around 92% 2) Arrange for supplemental oxygen at home 3) Arrange Oncology Consult on outpatient basis. 09/12/2019 Assessment 1) Pleural Effusion with Hypoxia 2) Shortness of Breath 3) 12 cm mass right lung Plan 1) Titrate supplemental oxygen to keep saturation around 92% 2) Change to Inpatient status 3) OT/PT/Swallow Study required 4) Care Conference for discharge placement 5) Arrange Oncology Consult on outpatient basis. 13 September 2019 Assessment 1) Hypoxia 2) Shortness of Breath 3) mediastinal mass 4) nausea and vomiting 5) dysphagia Plan 1) Titrate supplemental oxygen to keep saturation around 92% 2) sign DNR/DNI comfort cares 3) Arrange for comfort cares to establish in NH or via swingbed. 4) manage air hunger, secretions, pain and anxiety with IV and oral medications.
[2019-09-13] MEDS ORDERED: Sodium Chloride 0.9% 250 ML IV SCH (19:00)
[2019-09-13] MEDS: Atropine 1% Ophth Soln 5 ML BOTTLE SL SCH ×2 (20:24→22:04)
[2019-09-13] MEDS: Non-Formulary Medication 1 Each (Atorvastatin [Lipitor] 40 MG) PO SCH (20:51)
[2019-09-13] MEDS: Non-Formulary Medication 1 Each (Clopidogrel [Plavix] 75 MG) PO SCH (20:51)
[2019-09-13] MEDS ORDERED: LORazepam 2 MG/ML SDV IVPUSH PRN (21:09)
[2019-09-14] MEDS: Atropine 1% Ophth Soln 5 ML BOTTLE SL SCH ×7 (00:05→11:45)
[2019-09-14 08:29] VITALS: BP 148/71; PULSE 80
[2019-09-14] MEDS ORDERED: Albuterol/Ipratropium 3.0-0.5 MG/3 ML Neb Soln NEB PRN (10:28)
--- NOTE | 2019-09-14 15:09 | PCM.DCSUM1 ---
Discharge Summary - Hospital Course Brief History: pt with newly documented mediastinal mass, worsening shortness of breath, anxiety, hypoxic and cyanotic episodes on admission day 4. yesterday , care conference with pt and pt family where DNR/DNI with comfort cares was agreed upon. pt and nursing staff state that medication changes have increased pt comfort and anxiety. pt states she still has some difficulty breathing and rattling in her chest. plan to discharge to [place] with comfort cares later today. - Discharge Data Discharge Date: 09/14/19 Discharge Disposition: DC/Tfer to [facility] 64 Condition: Poor - Referral to Home Health Primary Care Physician: PCP None - Discharge Diagnosis/Problem(s) (1) Mediastinal mass Status: Acute Current Visit: Yes Onset Date: ~09/12/19 (2) Hypoxia SNOMED Code(s): 717859525 ICD Code: R09.02 - HYPOXEMIA Status: Acute Priority: High Current Visit : Yes Problem Details: continuous supplemental oxygen, morphine for air hunger (3) Shortness of breath SNOMED Code(s): 935167678 ICD Code: R06.02 - SHORTNESS OF BREATH Status: Acute Priority: High Current Visit: Yes Problem Details: continuous supplemental oxygen, reduce activities (4) Nausea & vomiting SNOMED Code(s): 93858571 ICD Code: R11.2 - NAUSEA WITH VOMITING, UNSPECIFIED Status: Acute Current Visit: Yes Problem Details: controlled with antiemetics Qualifiers: Vomiting Intractability: non-intractable (5) Swallowing dysfunction SNOMED Code(s): 641876657 ICD Code: R13.10 - DYSPHAGIA, UNSPECIFIED Status: Acute Current Visit: Yes Problem Details: atropine drops to reduce secretions - Patient Summary/Data Consults: Consultations 09/12/19 09:35 OT Evaluation and Treatment [CONS] Routine Please Evaluate and Treat. OT Reason for Consult: ADL's Pending Discharge: No This query below is only for informational purposes and is not editable. Admission Diagnosis/Problem: Shortness of breath PT Evaluation and Treatment [CONS] Routine Please Evaluate and Treat. PT Reason for Consult: Ambulation Pending Discharge: No This query below is only for informational purposes and is not editable. 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 Admission Diagnosis/Problem: Shortness of breath Hospital Course: pt with mediastinal mass originally admitted obs for stabilization and referral outpatient to oncology. after discussion with pt and family, she made her wishes clear that she did not want to pursue surgery, chemo, or radiation and she elected for comfort cares instead. the remainder of pt's stay has been medically treating her pain, anxiety, and shortness of breath which has been successful for the most part save for several instances of cyanosis and hypoxia during cares. social media designer involvement yesterday was contributory to pt's acceptance to [facility] for continued comfort cares. - Discharge Plan *PRESCRIPTION DRUG MONITORING PROGRAM REVIEWED*: Not Applicable *COPY OF PRESCRIPTION DRUG MONITORING REPORT IN PATIENT ADAM: Not Applicable Prescriptions/Med Rec: Albuterol/Ipratropium [DuoNeb 3.0-0.5 MG/3 ML] 3 ml .XX Q4HR PRN #1 box PRN Reason: Shortness Of Breath Glycopyrrolate [Robinul] 1 mg BUCCAL Q2H PRN 14 Days mdv PRN Reason: Other LORazepam [Ativan ORAL Concentrate 1MG/0.5 ML U/D] 1 mg PO Q8H PRN 28 Days #60 cont PRN Reason: Anxiety Morphine [Morphine 20 MG/ML Soln] 5 mg PO Q4H PRN 28 Days #60 ml PRN Reason: Pain Home Medications: Home Meds Albuterol/Ipratropium [DuoNeb 3.0-0.5 MG/3 ML] 3 ml .XX Q4HR PRN #1 box [Rx] Glycopyrrolate [Robinul] 1 mg BUCCAL Q2H PRN 14 Days mdv 09/14/19 [Rx] LORazepam [Ativan ORAL Concentrate 1MG/0.5 ML U/D] 1 mg PO Q8H PRN 28 Days #60 cont 09/14/19 [Rx] Morphine [Morphine 20 MG/ML Soln] 5 mg PO Q4H PRN 28 Days #60 ml 09/14/19 [Rx] Oxygen Therapy Mode: Nasal Cannula Oxygen Flow Rate (L/min): 4 Forms: ED Department Discharge Referrals: PCP,None [Primary Care Provider] - - Discharge Summary/Plan Comment DC Time >30 min.: Yes - General Info Date of Service: 09/14/19 Admission Dx/Problem (Free Text: shortness of breath mediastinal mass comfort cares Functional Status: Reports: Pain Controlled - Review of Systems General: Reports: Weakness, Fatigue Pulmonary: Reports: Shortness of Breath, Cough Gastrointestinal: Reports: No Symptoms Genitourinary: Reports: No Symptoms Musculoskeletal: Reports: No Symptoms Skin: Reports: No Symptoms Neurological: Reports: No Symptoms Psychiatric: Reports: No Symptoms - Patient Data Vitals - Most Recent: Last Vital Signs Temp 98.3 F 09/14/19 08:28 Pulse 80 09/14/19 08:28 Resp 18 09/14/19 08:28 BP 148/71 H 09/14/19 08:28 Pulse Ox 94 L 09/14/19 08:28 Weight - Most Recent: 110 lb I&O - Last 24 hours: Intake & Output 09/13/19 09/14/19 09/14/19 22:59 06:59 14:59 Intake Total 100 Balance 100 Med Orders - Current: Current Medications Albuterol/Ipratropium (Duoneb 3.0-0.5 Mg/3 Ml) 3 ml NEB Q4H PRN PRN Reason: Shortness of Breath Last Admin: 09/14/19 11:00 Dose: 3 ml Atropine Sulfate (Atropine 1% Oph Soln) 0 ml SL Q2H ELICIA Last Admin: 09/14/19 11:45 Dose: 0.5 ml Docusate Sodium (Colace) 200 mg PO DAILY PRN PRN Reason: Constipation Last Admin: 09/13/19 07:59 Dose: 200 mg Sodium Chloride (Normal Saline) 250 mls @ 30 mls/hr IV ASDIRECTED ELICIA Last Admin: 09/13/19 19:24 Dose: 30 mls/hr Lorazepam (Ativan) 0.5 mg PO Q4H PRN PRN Reason: Anxiety Last Admin: 09/13/19 20:46 Dose: 0.5 mg Lorazepam (Ativan) 0.5 mg IVPUSH Q4H PRN PRN Reason: Anxiety Last Admin: 09/14/19 10:48 Dose: 0.5 mg Morphine Sulfate (Morphine) 1 mg IVPUSH Q1H PRN PRN Reason: Dyspnea Last Admin: 09/14/19 13:26 Dose: 1 mg Ondansetron HCl (Zofran) 4 mg IVPUSH Q4H PRN PRN Reason: Nausea/Vomiting Sodium Chloride (Saline Flush) 10 ml FLUSH ASDIRECTED PRN PRN Reason: Keep Vein Open Discontinued Medications Aspirin (Aspirin) 81 mg PO DAILY [facility] Last Admin: 09/13/19 07:59 Dose: 81 mg Atorvastatin Calcium (Lipitor) Confirm Administered Dose 40 mg .ROUTE .STK-MED ONE Stop: 09/11/19 21:04 Last Admin: 09/11/19 21:09 Dose: Not Given Clopidogrel Bisulfate (Plavix) Confirm Administered Dose 75 mg .ROUTE .STK-MED ONE Stop: 09/11/19 21:03 Last Admin: 09/11/19 21:08 Dose: Not Given Dipyridamole/Aspirin (Aggrenox 200-25 Mg) Confirm Administered Dose 1 cap .ROUTE .STK-MED ONE Stop: 09/11/19 21:03 Last Admin: 09/11/19 21:08 Dose: Not Given Potassium Chloride/Dextrose/Sod Cl (D5 1/2 Ns W/ 20 Meq/L Kcl) 1,000 mls @ 100 mls/hr IV ASDIRECTED [facility] Last Admin: 09/13/19 12:14 Dose: 100 mls/hr Lorazepam (Ativan) 0.5 mg IVPUSH ONETIME ONE Stop: 09/11/19 13:04 Last Admin: 09/11/19 13:11 Dose: 0.5 mg Lorazepam (Ativan) Confirm Administered Dose 0.5 mg .ROUTE .STK-MED ONE Stop: 09/11/19 13:11 Last Admin: 09/11/19 19:13 Dose: Not Given Non-Formulary Medication (Aspirin/Dipyridamole [Aggrenox 200-25 Mg]) 25 - 200 mg PO BID [facility] Last Admin: 09/12/19 09:39 Dose: Not Given Non-Formulary Medication (Atorvastatin [Lipitor]) 40 mg PO BEDTIME [facility] Last Admin: 09/13/19 20:51 Dose: 40 mg Non-Formulary Medication (Clopidogrel [Plavix]) 75 mg PO BEDTIME [facility] Last Admin: 09/13/19 20:51 Dose: 75 mg Non-Formulary Medication (Diphenhydramine [Benadryl]) 25 mg PO DAILY [facility] Last Admin: 09/12/19 09:39 Dose: Not Given Ondansetron HCl (Zofran) Confirm Administered Dose 4 mg .ROUTE .STK-MED ONE Stop: 09/12/19 18:17 Last Admin: 09/12/19 18:22 Dose: 4 mg Tramadol HCl (Ultram) 100 mg PO Q6H PRN PRN Reason: Pain (moderate 4-6) Last Admin: 09/12/19 22:54 Dose: 100 mg - Exam General: Reports: Alert, Oriented HEENT: Reports: Pupils Equal, Pupils Reactive, EOMI, Mucous Membr. Moist/[place] Neck: Reports: Supple Lungs: Reports: Clear to Auscultation, Normal Respiratory Effort, Decreased Breath Sounds, Rhonchi Cardiovascular: Reports: Regular Rate, Regular Rhythm GI/Abdominal Exam: Normal Bowel Sounds, Soft, Non-Tender, No Organomegaly Extremities: Non-Tender, No Pedal Edema, Normal Capillary Refill Skin: Reports: Warm, Dry, Intact Neurological: Reports: No New Focal Deficit Psy/Mental Status: Reports: Alert, Normal Affect
== END 2019-09-14 14:00 | DRG 178 ==
LOC: LB.ED 11:42 → LB.MS 12:40 → OBSVTOIN 09-12 11:31
PROVIDERS: ADMIT Nurse Practitioner; ATTEND Nurse Practitioner
DX: R09.02 Hypoxemia (principal); J98.59 Other diseases of mediastinum, not elsewhere classified; J90 Pleural effusion, not elsewhere classified; Z51.5 Encounter for palliative care; Z66 Do not resuscitate; R32 Unspecified urinary incontinence; G89.29 Other chronic pain; M54.2 Cervicalgia; I69.351 Hemiplegia and hemiparesis following cerebral infarction affecting right dominant side; Z98.49 Cataract extraction status, unspecified eye; Z90.710 Acquired absence of both cervix and uterus; R13.10 Dysphagia, unspecified; E78.00 Pure hypercholesterolemia, unspecified; Z88.3 Allergy status to other anti-infective agents; Z79.02 Long term (current) use of antithrombotics/antiplatelets; I10 Essential (primary) hypertension; Z79.899 Other long term (current) drug therapy; J44.9 Chronic obstructive pulmonary disease, unspecified; K59.09 Other constipation; Z86.73 Personal history of transient ischemic attack (TIA), and cerebral infarction without residual deficits; Z88.2 Allergy status to sulfonamides; Z88.8 Allergy status to other drugs, medicaments and biological substances; Z79.82 Long term (current) use of aspirin; Z87.891 Personal history of nicotine dependence
CPT/HCPCS: 36415; 71045; 71250; 80048; 84484; 85025; 92526-GN; 92610-GN; 93005; 96374; 97162-GP; 99285-25; A9270-GY; G0378; J2060; J2270; J2405; J3480; J7050; J7620-GY; U0002